=== PATIENT | female | born 1955 | race Caucasian/White ===

== ENCOUNTER 2016-08-20 05:29 | Inpatient (IN) | payer OTHER ==
[~2016-08-20] VITALS: Ht 162.6 cm; Wt 144.5 kg
[~2016-08-20 05:29] MED LIST: AMARYL2 MG PO; CRESTOR10 MG PO; CYANOCOBALAM1000 MCG PO; FLONASE16 G1 BOTH NARES; FLOVENT 11120 INHALA IH; GLUCOPHAGE1000 MG PO; HUMALOG100 UNIT/1 SC; HYGROTON25 MG PO; LEVEMIR100 UNIT/2 SC; LEVO-T125 MCG PO; LO-DOSE ASPIRIN81 M2 PO; LOTENSIN40 MG PO; NORVASC2.5 MG PO; TYLENOL EXTRA500 MG PO; ULTRAM50 MG PO
[2016-08-20 06:22] VITALS: BP 150/55
[2016-08-20 06:36] LABS: POINT-OF-CARE METER ID UU14174212
[2016-08-20 09:37] LABS: POINT-OF-CARE METER ID UU13113655; POINT-OF-CARE USER ID ENVKLS06
[2016-08-20 10:12] LABS: POINT-OF-CARE METER ID UU13113675
[2016-08-20 14:24] VITALS: BP 152/65
[2016-08-20 16:23] LABS: POINT-OF-CARE METER ID UU14149397
[2016-08-20 16:30] VITALS: BP 195/75
[2016-08-20 19:23] VITALS: BP 104/65
[2016-08-20 21:23] LABS: POINT-OF-CARE METER ID UU14149397
[2016-08-20 23:42] VITALS: BP 140/64
[2016-08-21 03:24] VITALS: BP 179/74
[2016-08-21 06:34] LABS: POINT-OF-CARE METER ID UU14149397
[2016-08-21 07:35] VITALS: BP 147/64
[2016-08-21] MEDS ORDERED: TIZANIDINE HCL4 MG PO (09:02)
[2016-08-21] MEDS ORDERED: ULTRAM50 MG PO (09:03)
[2016-08-21] MEDS ORDERED: BACTRIM,SEPT1 TABLET PO (09:04)
== END 2016-08-21 11:25 | disposition home or self-care (01) | DRG 472 ==
LOC: 2SOUTH 05:29 → 3EAST 13:55
PROVIDERS: Neurological Surgery
DX: M48.02 Spinal stenosis, cervical region (principal); M47.812 Spondylosis without myelopathy or radiculopathy, cervical region; Z68.43 Body mass index [BMI] 50.0-59.9, adult; I50.9 Heart failure, unspecified; M54.2 Cervicalgia; M50.30 Other cervical disc degeneration, unspecified cervical region; E11.9 Type 2 diabetes mellitus without complications; I10 Essential (primary) hypertension; E78.5 Hyperlipidemia, unspecified; J44.9 Chronic obstructive pulmonary disease, unspecified; E66.9 Obesity, unspecified; Z90.49 Acquired absence of other specified parts of digestive tract
CPT/HCPCS: 72020; 72040; 76000; 82948; 86900; 86901; 94640; 94640 76; C1713; J0131; J0330; J0690; J0696; J1170; J1815; J2250; J2405; J2710; J2765; J3010; J3370; J3480; J7050; J7120